=== PATIENT | male | born 1985 | race Caucasian/White ===

== ENCOUNTER 2023-03-24 20:53 | Emergency (ER) | payer BC ==
[~2023-03-24] VITALS: Ht 170.2 cm; Wt 74.8 kg
[2023-03-24] MEDS ORDERED: TETRACAINE HCL 0.5% 4 ML OPHTH SOLN ONE (23:18)
[2023-03-24] MEDS ORDERED: FLUORESCEIN SODIUM 1 STRIP STRIP ONE (23:18)
[2023-03-24] MEDS ORDERED: MOXIOS OS (23:56)
[2023-03-25 00:26] VITALS: BP 138/80; PULSE 82; RESP 16; O2SAT 99
== END 2023-03-25 00:29 | disposition home or self-care (01) ==
LOC: EDH 20:53
DX: T15.91XA Foreign body on external eye, part unspecified, right eye, initial encounter (principal); Z88.0 Allergy status to penicillin
CPT/HCPCS: 65220